=== PATIENT | male | born 1945 | race Caucasian/White ===

== ENCOUNTER 2023-12-22 11:38 | Emergency (ER) | payer SELFPAY ==
[~2023-12-22] VITALS: Ht 188 cm; Wt 100.0 kg
[2023-12-22 11:48] VITALS: PULSE 81; RESP 18
[2023-12-22] MEDS ORDERED: NOREPINEPHRINE 8MG/250ML PMX 250 ML IV STA (11:57)
[2023-12-22] MEDS ORDERED: PIPERACILLIN/TAZO 3.375G/50ML 50 ML IV ONE (12:00)
[2023-12-22] MEDS ORDERED: VANCOMYCIN 1G PREMIX 200 ML IV ONE (12:00)
[2023-12-22] MEDS: SODIUM CHLORIDE 0.9% 1000ML BAG (SEPSIS BOLUS) IV ONE (12:00)
[2023-12-22 12:18] LABS: MEAN CORPUSCULAR HEMOGLOBIN 29.2 pg (28.0-32.0); MEAN CORPUSCULAR HGB CONC 28.3 g/dL (31.0-37.0); MEAN CORPUSCULAR VOLUME 103.2 fL (80.0-94.0); MEAN PLATELET VOLUME 10.1 fl (7.4-10.4); PLATELET 212 x1000/uL (130-400); RED BLOOD CELL COUNT 3.78 mill/uL (4.7-6.1); RED CELL DISTRIBUTION WIDTH 21.3 % (11.6-14.6); WHITE BLOOD COUNT 22.1 x1000/uL (4.5-11.0)
[2023-12-22 12:25] LABS: DIFFERENTIAL COMMENT 1
[2023-12-22 12:47] LABS: ALANINE AMINOTRANSFERASE 125 IU/L (10-49); ALBUMIN 2.2 g/dL (3.2-4.8); ASPARTATE AMINOTRANSFERASE 229 IU/L (<34); BILIRUBIN TOTAL 5.6 mg/dL (0.1-1.0); CALCIUM 7.8 mg/dL (8.7-10.4); CHLORIDE 110 mEq/L (98-107); GLUCOSE 129 mg/dL (70-105); POTASSIUM 4.5 mEq/L (3.5-5.1); PROTEIN TOTAL 4.8 g/dL (6.0-8.3); SODIUM 143 mEq/L (136-145); TROPONIN I HIGH SENSITIVITY 32 ng/L (3.0-53); UREA NITROGEN BLOOD 38 mg/dL (9-23)
[2023-12-22 12:51] LABS: CARBON DIOXIDE < 10 mEq/L (21-32)
[2023-12-22 13:05] LABS: LACTIC ACID 17.3 mmol/L (0.4-2.0)
[2023-12-22 13:07] LABS: CLARITY URINE CLOUDY (CLEAR); COLOR URINE DARK YELLOW (YELLOW); GLUCOSE URINE NEGATIVE (NEGATIVE); KETONES URINE NEGATIVE (NEGATIVE); LEUKOCYTE ESTERASE URINE 1+ (NEGATIVE); NITRITE URINE POSITIVE (NEGATIVE); OCCULT BLOOD URINE NEGATIVE (NEGATIVE); PROTEIN URINE TRACE (NEGATIVE)
[2023-12-22] MEDS ORDERED: CEFTRIAXONE 1GM PREMIX 50 ML IV SCH (13:30)
[2023-12-22 13:33] LABS: SQUAMOUS EPITHELIAL CELL URINE RARE /lpf (RARE/1+)
[2023-12-22 13:35] LABS: BACTERIA URINE 1+; RBC URINE 0-2 /hpf (0-2); WBC URINE 0-2 /hpf (0-2)
[2023-12-22 13:43] LABS: BG BASE EXCESS -29.1 mmol/L (-2.0-2.0); BG CARBOXYHEMOGLOBIN 0.1 % (0.5-1.5); BG DEOXYHEMOGLOBIN 0.1 % (0.0-5.0); BG FRACTION INSPIRED OXYGEN 100; BG HCO3 ACT 5.2 mmol/L (22.0-26.0); BG METHEMOGLOBIN 0.4 % (0.0-1.5); BG OXYGEN SATURATION 99.9 % (92.0-98.5); BG OXYHEMOGLOBIN 99.4 % (94.0-97.0); BG PCO2 35.2 mmHg (35.0-45.0); BG PH 6.786 (7.350-7.450); BG PO2 527.5 mmHg (75.0-100.0); BG SAMPLE SITE RIGHT RADIAL; BG TOTAL HEMOGLOBIN 12.2 g/dL (12.0-18.0); BG VENT MODE VENT - AC/VC
[2023-12-22] MEDS: NOREPINEPHRINE 8MG/250ML PMX 250 ML IV PRN (13:46)
[2023-12-22] MEDS: VANCOMYCIN 1G PREMIX 200 ML IV NR (14:00)
[2023-12-22] MEDS ORDERED: PIPERACILLIN/TAZO 3.375G/50ML 50 ML IV NR (14:00)
[2023-12-22] MEDS: PANTOPRAZOLE SODIUM 40 MG/VIAL IV SCH (14:15)
[2023-12-22] MEDS: SODIUM BICARBONATE 8.4% 1 MEQ/ML 50ML SYR IV NR (14:15)
[2023-12-22] MEDS ORDERED: LIDOCAINE HCL 1% 10 MG/ML 10ML VIAL ONE (14:16)
[2023-12-22] MEDS ORDERED: ACETAMINOPHEN 650MG/20.3ML UDC NG PRN (14:45)
[2023-12-22] MEDS ORDERED: AZITHROMYCIN 500 MG in DEXT 5% WATER 250 ML IV SCH (14:45)
[2023-12-22] MEDS ORDERED: NOREPINEPHRINE 8MG/250ML PMX 250 ML IV PRN (14:45)
[2023-12-22] MEDS ORDERED: PHENYLEPHRINE 50MG/250ML PMX 250 ML IV PRN (14:45)
[2023-12-22] MEDS ORDERED: PROPOFOL 10MG/ML 100ML 100 ML IV PRN (14:45)
[2023-12-22 14:48] LABS: NUCLEATED RED BLOOD CELLS 6 /100 WBC
[2023-12-22 14:49] LABS: ANISOCYTOSIS 3+; HYPOCHROMASIA 1+; PLATELET ESTIMATE NORMAL
[2023-12-22] MEDS ORDERED: MIDAZOLAM 100MG/100ML PMX 100 ML IV PRN (15:00)
[2023-12-22] MEDS ORDERED: FENTANYL CITRATE/PF 2,500 MCG in SODIUM CHLORIDE 0.9% 200 ML IV PRN (15:00)
[2023-12-22 15:07] VITALS: PULSE 69; RESP 22
[2023-12-22] MEDS: CEFEPIME 1,000 MG in DEXTROSE 5% WATER 50 ML IV SCH (15:42)
[2023-12-22] MEDS ORDERED: DOXYCYCLINE 100 MG in DEXT 5% WATER 100 ML IV SCH (16:00)
[2023-12-22] MEDS: MIDAZOLAM 100MG/100ML PMX 100 ML IV PRN (16:02)
[2023-12-22 16:26] VITALS: O2SAT 99
[2023-12-22] MEDS: FENTANYL CITRATE/PF 2,500 MCG in SODIUM CHLORIDE 0.9% 200 ML IV PRN (16:27)
[2023-12-22 16:47] LABS: BG BASE EXCESS -23.3 mmol/L (-2.0-2.0); BG CARBOXYHEMOGLOBIN 0.3 % (0.5-1.5); BG DEOXYHEMOGLOBIN 0.7 % (0.0-5.0); BG FRACTION INSPIRED OXYGEN 50; BG HCO3 ACT 7.4 mmol/L (22.0-26.0); BG METHEMOGLOBIN 0.4 % (0.0-1.5); BG OXYGEN SATURATION 99.3 % (92.0-98.5); BG OXYHEMOGLOBIN 98.6 % (94.0-97.0); BG PCO2 32.4 mmHg (35.0-45.0); BG PH 6.979 (7.350-7.450); BG PO2 243.7 mmHg (75.0-100.0); BG SAMPLE SITE RIGHT BRACHIAL; BG VENT MODE VENT - AC/VC
[2023-12-22 17:01] LABS: INR 1.4; PROTHROMBIN TIME 15.7 sec (9.6-11.0)
[2023-12-22 17:14] LABS: AMMONIA 125 uMol/L (<32)
[2023-12-22 17:17] LABS: BILIRUBIN DIRECT 6.7 mg/dL (<=3.0); CREATINE KINASE 2339 IU/L (46-171); IRON 138 ug/dL (65-175); TOTAL IRON BINDING CAPACITY 331 ug/dl (250-425)
[2023-12-22 17:20] LABS: ETHANOL BLOOD < 10 mg/dL (<10)
[2023-12-22 17:38] LABS: FERRITIN 3545 ng/mL (22-322); FOLIC ACID (FOLATE) SERUM 12.09 ng/mL (>5.38); VITAMIN B12 SERUM 1229 pg/mL (211-911)
[2023-12-22 17:50] VITALS: PULSE 82; RESP 29
[2023-12-22 18:40] LABS: HEPATITIS A AB IGM NEGATIVE (Negative); HEPATITIS B CORE AB IGM NEGATIVE (Negative); HEPATITIS B SURFACE ANTIGEN NEGATIVE (Negative); HEPATITIS C AB NON REACTIVE (Neg) (Negative)
[2023-12-22] MEDS: LACTULOSE 20G/30ML UDC NG NR (19:15)
[2023-12-22 20:04] VITALS: PULSE 92; RESP 26
[2023-12-22] MEDS: IPRATROPIUM/ALBUTEROL 0.5-3(2.5)MG/3ML NEB HHN SCH (20:29)
[2023-12-22] MEDS: PHENYLEPHRINE 50MG/250ML PMX 250 ML IV PRN (21:04)
[2023-12-22 21:37] LABS: TROPONIN I HIGH SENSITIVITY 164 ng/L (3.0-53)
[2023-12-22 21:46] VITALS: PULSE 90; RESP 28
[2023-12-22] MEDS: VASOPRESSIN 20 UNIT in SODIUM CHLORIDE 0.9% 99 ML IV PRN (23:11)
[2023-12-23] VITALS (8 sets, daily range): BP systolic 122; BP diastolic 62; PULSE 82–88; RESP 25–30; TEMP 99.1
[2023-12-23 01:41] LABS: TROPONIN I HIGH SENSITIVITY 324 ng/L (3.0-53)
[2023-12-23] MEDS: SODIUM CHLORIDE 0.45% 1,000 ML IV NR (02:00)
[2023-12-23 07:12] LABS: BG BASE EXCESS -22.8 mmol/L (-2.0-2.0); BG CARBOXYHEMOGLOBIN 0.4 % (0.5-1.5); BG DEOXYHEMOGLOBIN 3.2 % (0.0-5.0); BG FRACTION INSPIRED OXYGEN 40; BG HCO3 ACT 6.2 mmol/L (22.0-26.0); BG METHEMOGLOBIN 0.2 % (0.0-1.5); BG OXYGEN SATURATION 96.8 % (92.0-98.5); BG OXYHEMOGLOBIN 96.2 % (94.0-97.0); BG PCO2 23.1 mmHg (35.0-45.0); BG PH 7.046 (7.350-7.450); BG PO2 106.2 mmHg (75.0-100.0); BG SAMPLE SITE RIGHT BRACHIAL; BG TOTAL HEMOGLOBIN 12.1 g/dL (12.0-18.0); BG VENT MODE VENT - AC/VC
[2023-12-23 08:21] LABS: ALANINE AMINOTRANSFERASE 708 IU/L (10-49); ALBUMIN 2.3 g/dL (3.2-4.8); ASPARTATE AMINOTRANSFERASE 2634 IU/L (<34); CALCIUM 7.1 mg/dL (8.7-10.4); CHLORIDE 108 mEq/L (98-107); CHOLESTEROL 201 mg/dL (<200); GLUCOSE 84 mg/dL (70-105); HDL CHOLESTEROL < 20 mg/dL (>55); LDL CHOLESTEROL 159 mg/dL (5-100); PROTEIN TOTAL 5.1 g/dL (6.0-8.3); SODIUM 140 mEq/L (136-145); T4 FREE 0.78 ng/dL (0.89-1.76); THYROID STIMULATING HORMONE 1.39 uIU/mL (0.55-4.78); TRIGLYCERIDE 169 mg/dL (0-150); UREA NITROGEN BLOOD 51 mg/dL (9-23)
[2023-12-23] MEDS: VASOPRESSIN 20 UNIT in SODIUM CHLORIDE 0.9% 99 ML IV PRN (08:24)
[2023-12-23] MEDS: DOXYCYCLINE 100 MG in DEXT 5% WATER 100 ML IV SCH (08:24)
[2023-12-23 08:26] LABS: HEMATOCRIT. 43.2 % (42.0-52.0); HEMOGLOBIN. 11.6 g/dL (14.0-18.0); MEAN CORPUSCULAR HEMOGLOBIN 28.6 pg (28.0-32.0); MEAN CORPUSCULAR HGB CONC 26.8 g/dL (31.0-37.0); MEAN CORPUSCULAR VOLUME 106.8 fL (80.0-94.0); MEAN PLATELET VOLUME 9.9 fl (7.4-10.4); PLATELET 165 x1000/uL (130-400); RED BLOOD CELL COUNT 4.05 mill/uL (4.7-6.1); RED CELL DISTRIBUTION WIDTH 22.8 % (11.6-14.6)
[2023-12-23 08:43] LABS: DIFFERENTIAL COMMENT 1
[2023-12-23 08:45] LABS: CARBON DIOXIDE < 10 mEq/L (21-32); CREATININE 2.9 mg/dL (0.6-1.3)
[2023-12-23 08:46] LABS: BILIRUBIN TOTAL 7.7 mg/dL (0.1-1.0)
[2023-12-23] MEDS ORDERED: PANTOPRAZOLE SODIUM 40 MG/VIAL IV SCH (09:00)
[2023-12-23] MEDS ORDERED: CEFTRIAXONE 1,000 MG in DEXTROSE 5% WATER 50 ML IV SCH (09:00)
[2023-12-23 09:12] LABS: NUCLEATED RED BLOOD CELLS 6 /100 WBC; PLATELET ESTIMATE NORMAL
[2023-12-23 09:16] LABS: ANISOCYTOSIS 1+
[2023-12-23 11:14] LABS: CLARITY URINE TURBID (CLEAR); COLOR URINE DARK YELLOW (YELLOW); GLUCOSE URINE NEGATIVE (NEGATIVE); KETONES URINE NEGATIVE (NEGATIVE); LEUKOCYTE ESTERASE URINE 1+ (NEGATIVE); NITRITE URINE POSITIVE (NEGATIVE); OCCULT BLOOD URINE 3+ (NEGATIVE); PROTEIN URINE 2+ (NEGATIVE); SPECIFIC GRAVITY URINE 1.016 (1.005-1.030)
[2023-12-23] MEDS ORDERED: SODIUM BICARBONATE 100 MEQ in DEXTROSE 5% WATER 1,000 ML IV SCH ×2 (11:30→12:30)
[2023-12-23] MEDS: SODIUM BICARBONATE 8.4% 1 MEQ/ML 50ML SYR IV NR (11:46)
[2023-12-23 11:47] LABS: *AMPHETAMINES SCREEN URINE NEGATIVE (NEGATIVE); *BARBITURATES SCREEN URINE NEGATIVE (NEGATIVE); *BENZODIAZEPINES SCREEN URINE PRESUMPTIVE POSITIVE (NEGATIVE); *COCAINE SCREEN URINE NEGATIVE (NEGATIVE); CANNABINOID URINE SCREEN NEGATIVE (NEGATIVE); ECSTASY MDMA SCREEN URINE NEGATIVE (NEGATIVE); METHADONE URINE SCREEN Neg (NEGATIVE); OPIATES URINE SCREEN NEGATIVE (NEGATIVE); PHENCYCLIDINE URINE SCREEN NEGATIVE (NEGATIVE)
[2023-12-23 11:59] LABS: COARSE GRANULAR CASTS URINE 0-5 /lpf; FINE GRANULAR CASTS URINE 0-5 /lpf; HYALINE CASTS URINE 0-5 /lpf
[2023-12-23 12:00] LABS: RBC URINE 0-2 /hpf (0-2); WBC URINE 0-2 /hpf (0-2)
[2023-12-23] MEDS ORDERED: DEXTROSE 50% WATER 50ML SYRINGE IV NR (12:00)
[2023-12-23] MEDS ORDERED: INSULIN REGULAR (HUMULIN R) 300UNITS/3ML VIAL IV NR (12:00)
[2023-12-23 12:01] LABS: BACTERIA URINE 3+; SQUAMOUS EPITHELIAL CELL URINE RARE /lpf (RARE/1+)
[2023-12-23] MEDS ORDERED: VANCOMYCIN 1.5GM/250ML 250 ML IV NR (12:30)
[2023-12-23 14:41] LABS: *AMPHETAMINES SCREEN URINE NEGATIVE (NEGATIVE); *BARBITURATES SCREEN URINE NEGATIVE (NEGATIVE); *BENZODIAZEPINES SCREEN URINE NEGATIVE (NEGATIVE); *COCAINE SCREEN URINE NEGATIVE (NEGATIVE); CANNABINOID URINE SCREEN NEGATIVE (NEGATIVE); ECSTASY MDMA SCREEN URINE NEGATIVE (NEGATIVE); METHADONE URINE SCREEN Neg (NEGATIVE); OPIATES URINE SCREEN NEGATIVE (NEGATIVE); PHENCYCLIDINE URINE SCREEN NEGATIVE (NEGATIVE)
[2023-12-24 13:10] LABS: ALPHA FETOPROTEIN TUMOR MARKER < 1.8 ng/mL (0.0-8.4); CA 19-9 < 2 U/mL (0-35)
== END 2023-12-23 14:54 ==
LOC: ER 13:03 → EDBEDREQ 13:30 → EDBEDREQTM 13:30 → ER 12-23 14:54
DX: I46.9 Cardiac arrest, cause unspecified (principal); R65.21 Severe sepsis with septic shock; N17.9 Acute kidney failure, unspecified; I10 Essential (primary) hypertension; Z20.822 Contact with and (suspected) exposure to COVID-19
CPT/HCPCS: 80053 ×2; 80305 ×2; 81003 ×2; 80320; 82140; 82248; 82550; 82607; 82728; 82746; 82962 ×2; 83540; 83550; 83605; 85025 ×2; 85610; 87340; 87040; 84484 ×2; 36415 ×2; 86705; 86709; 84145; 71045; 76700; 94640 ×2; 82805 ×2; 82375 ×2; 31500 ×2; 96367; 96365; 96366; 99291; 82105; 86301; 84153; 82378; 36600 ×2; 80061; 84439; 84443; 87086; 94003; J3010; J0692; J0696; J3490 ×6; J2250; J2370 ×2; J2543; Z7610 ×10; J7060 ×2; J7050; J7030; J7070; 94002; G0480